=== PATIENT | female | born 1970 | race Two or more races ===

== ENCOUNTER 2022-08-03 09:40 | Emergency (ER) | payer OTHER ==
[~2022-08-03] VITALS: Ht 170.2 cm; Wt 64.9 kg
[2022-08-03] MEDS ORDERED: FEROSUL (10:01)
== END 2022-08-03 18:19 | disposition home or self-care (01) ==
LOC: ER 09:40
DX: N70.11 Chronic salpingitis (principal); N83.202 Unspecified ovarian cyst, left side; N83.201 Unspecified ovarian cyst, right side